=== PATIENT | female | born 1960 | race Caucasian/White ===

== ENCOUNTER 2020-10-21 13:56 | Outpatient (REF) | payer BC, SELFPAY ==
--- NOTE | 2020-10-21 14:02 | US_ITS ---
EXAMINATION: ULTRASOUND EXTREMITY NONVASCULAR. CLINICAL INFORMATION: Right calf pain. COMPARISON: None TECHNIQUE: Limited ultrasound imaging through the popliteal fossa is performed. FINDINGS: There is a small anechoic Franklin's cyst in the posterior fossa measuring 3.2 x 0.70 x 2.60 cm. No additional focal lesion seen. Imaging through the calf region reveals no fluid or edema seen in the superficial and deep calf muscles. US/US extremity nonvascular IMPRESSION: Small right Franklin's cyst measuring 3.2 cm in maximum craniocaudad dimension.
== END 2020-10-21 13:57 | disposition home or self-care (01) ==
LOC: HO.HMGCX 13:56
PROVIDERS: PCP Family Medicine; Visit Provider Family Medicine
DX: M79.661 Pain in right lower leg (principal)
CPT/HCPCS: 76882